=== PATIENT | male | born 1965 | race Caucasian/White ===

== ENCOUNTER 2021-07-14 13:30 | Inpatient (IN) | payer BC ==
[2021-07-14 18:01] VITALS: BMI 27.3
[2021-07-14] MEDS ORDERED: hydrALAZINE 20 MG/ML VIAL SLOW IVP PRN (20:54)
[2021-07-14] MEDS ORDERED: Ondansetron PF 4 MG/2 ML Vial IVP PRN (20:55)
[2021-07-14] MEDS ORDERED: Acetaminophen 325 MG TAB PO PRN (20:55)
[2021-07-14] MEDS ORDERED: Ondansetron ODT 4 MG TAB PO PRN (20:55)
[2021-07-14] MEDS ORDERED: HumaLOG 300 UNITS/3 ML VIAL SC PRN (20:56)
[2021-07-14] MEDS ORDERED: Dextrose 50% Abboject 50 ML SYRINGE SLOW IVP PRN (20:56)
[2021-07-14] MEDS ORDERED: Dextrose 5% in Water 1,000 ML IV PRN (20:56)
[2021-07-14] MEDS ORDERED: Electrolyte Replacement Protocol 1 EACH FS PRN (21:00)
[2021-07-14] MEDS ORDERED: Atorvastatin Calcium 10 MG TAB PO SCH (21:45)
[2021-07-14] MEDS ORDERED: Gabapentin 100 MG CAP PO SCH (21:45)
[2021-07-14] MEDS: HumaLOG 300 UNITS/3 ML VIAL SC PRN (22:22)
[2021-07-15] MEDS: HumaLOG 300 UNITS/3 ML VIAL SC PRN (00:46)
[2021-07-15 04:38] LABS: #Basophils 0.1 thou/uL (0.0-0.2); #Eosinphils 0.3 thou/uL (0.0-0.7); #Monocytes 0.6 thou/uL (0.11-0.59); #Neutrophils 4.6 thou/uL (1.40-6.50); %Basophils 0.8 % (0.0-1.0); %Eosinophils 3.4 % (0.0-10.0); %Lymphocytes 26.9 % (21.0-51.0); %Monocytes 7.9 % (0.0-10.0); %Neutrophils 60.9 % (42.0-75.0); Hemoglobin 14.9 g/dL (14.0-18.0); Mean Corpuscular Hemoglobin 31.3 pg (27.0-31.0); Mean Platelet Volume 7.7 fL (7.4-10.4); Platelet Count 225 thou/uL (130-400); RBC Distribution Width 12.9 % (11.5-14.5); Red Blood Cell (RBC) Count 4.77 mill/uL (4.70-6.10); White Blood Cell (WBC) Count 7.5 thou/uL (4.8-10.8)
[2021-07-15 04:59] LABS: ALT (SGPT) 11 U/L (8-55); AST (SGOT) 7 U/L (5-34); Albumin 3.7 g/dL (3.5-5.0); Alkaline Phosphatase 63 U/L (40-110); Anion Gap 11 mmol/L (10-20); BUN (Urea Nitrogen) 14 mg/dL (8.4-25.7); Bilirubin, Total 0.8 mg/dL (0.2-1.2); Calc. Creatinine Clearance 120 mL/min (70-130); Calcium 8.6 mg/dL (7.8-10.44); Carbon Dioxide 28 mmol/L (22-29); Chloride 100 mmol/L (98-107); Globulin 2.8 g/dL (2.4-3.5); Glucose 185 mg/dL (70-105); Magnesium 2.1 mg/dL (1.6-2.6); Potassium 4.2 mmol/L (3.5-5.1); Protein, Total 6.5 g/dL (6.0-8.3); Sodium 135 mmol/L (136-145)
[2021-07-15] MEDS ORDERED: Albumin 5% 500 ML ONE (08:27)
[2021-07-15] MEDS ORDERED: Lidocaine 1% MPF 2 ML VIAL ONE (08:36)
[2021-07-15] MEDS ORDERED: Midazolam HCl 5 mg/5 ml Vial ONE (08:44)
[2021-07-15] MEDS ORDERED: Dexmedetomidine 200 MCG/2 ML VIAL ONE (08:44)
[2021-07-15] MEDS ORDERED: Fentanyl 250 MCG/5 ML VIAL ONE (08:44)
[2021-07-15] MEDS ORDERED: Heparin 10,000 UNITS/1 ML VIAL 30,000 UNITS in Sodium Chloride 0.9% 1,000 ML FS SCH (08:45)
[2021-07-15] MEDS ORDERED: Lisinopril 2.5 MG TAB PO SCH (09:00)
[2021-07-15] MEDS ORDERED: Atorvastatin Calcium 10 MG TAB PO SCH ×2 (09:00→21:00)
[2021-07-15] MEDS ORDERED: ceFAZolin (BATCH) 2 GM/100 ML BAG ONE (10:00)
[2021-07-15] MEDS ORDERED: Glycopyrrolate 0.2 MG/ML 5 ML SYRINGE ONE (10:13)
[2021-07-15] MEDS ORDERED: Thrombin 5000 UNITS/5 ML VIAL ONE (10:13)
[2021-07-15] MEDS ORDERED: Papaverine 60 MG/2 ML VIAL ONE (10:13)
[2021-07-15] MEDS ORDERED: Sodium Bicarb 50 MEQ/50 ML Abboject 8.4% SYRINGE ONE (10:13)
[2021-07-15] MEDS ORDERED: Mannitol 12.5 GM/50 ML ONE (10:13)
[2021-07-15] MEDS ORDERED: Protamine Sulfate 50 MG/5 ML VIAL ONE (10:13)
[2021-07-15] MEDS ORDERED: Potassium Chloride 60 MEQ/30 ML VIAL ONE (10:13)
[2021-07-15] MEDS ORDERED: PROPOFOL 200 MG/20 ML VIAL ONE (10:13)
[2021-07-15] MEDS ORDERED: Vecuronium 10 MG VIAL ONE (10:13)
[2021-07-15] MEDS ORDERED: Magnesium Sulfate 1 GM/2 ML VIAL ONE (10:13)
[2021-07-15] MEDS ORDERED: Heparin 5,000 UNITS/ML VIAL ONE (10:13)
[2021-07-15] MEDS ORDERED: Aminocaproic Acid 5 GM/20 ML VIAL ONE (10:13)
[2021-07-15] MEDS ORDERED: Lidocaine 1% PF 5 ML VIAL ONE (10:13)
[2021-07-15] MEDS ORDERED: Heparin 30,000 units/30 ml VIAL ONE (10:13)
[2021-07-15] MEDS ORDERED: Cardioplegic Soln 1,000 ML BAG ONE (10:13)
[2021-07-15] MEDS ORDERED: Ondansetron PF 4 MG/2 ML Vial ONE (10:13)
[2021-07-15] MEDS ORDERED: Ketorolac Tromethamine 30 MG/ML VIAL ONE (10:13)
[2021-07-15] MEDS ORDERED: Esmolol 100 MG/10 ML VIAL ONE (10:13)
[2021-07-15] MEDS ORDERED: Nitroglycerin 50 MG/250 ML BOT ONE (10:13)
[2021-07-15] MEDS ORDERED: Rocuronium Bromide 10 MG/ML (10ML VIAL) ONE (10:13)
[2021-07-15] MEDS ORDERED: Norepinephrine 4 MG/4 ML VIAL ONE (10:13)
[2021-07-15] MEDS ORDERED: Lidocaine 2% PF 100 mg/5 ml Syringe ONE (10:13)
[2021-07-15] MEDS ORDERED: Dexamethasone 20 MG/5 ML VIAL ONE (10:13)
[2021-07-15] MEDS ORDERED: Calcium Chloride 1 GM/10 ML Abboject SYRINGE ONE (10:13)
[2021-07-15] MEDS ORDERED: Insulin Regular 300 UNITS/3 ML VIAL ONE (10:47)
[2021-07-15] MEDS ORDERED: PHENYLEPHRINE-NS 100 MCG/ML 10 ML SYRINGE ONE (12:45)
[2021-07-15] MEDS ORDERED: Nitroglycerin 50 MG/250 ML BOT 250 ML IVPB PRN (14:07)
[2021-07-15] MEDS ORDERED: Fentanyl 100 MCG/2 ML VIAL SLOW IVP PRN ×2 (14:07)
[2021-07-15] MEDS ORDERED: Mag-Al 1200 mg/1200 mg/30 ML UDCUP PO PRN (14:07)
[2021-07-15] MEDS ORDERED: DOPamine 400 MG/D5W 250 ML 250 ML IVPB PRN (14:07)
[2021-07-15] MEDS ORDERED: Promethazine HCl 25 MG/ML VIAL IM PRN (14:07)
[2021-07-15] MEDS ORDERED: hydrALAZINE 20 MG/ML VIAL SLOW IVP PRN (14:07)
[2021-07-15] MEDS ORDERED: Ondansetron PF 4 MG/2 ML Vial IVP PRN (14:07)
[2021-07-15] MEDS ORDERED: Norepinephrine 8 MG/0.9% NS 250 ML IVPB PRN (14:07)
[2021-07-15] MEDS ORDERED: Post-Op Insulin Drip Protocol IVPB ONE (14:07)
[2021-07-15] MEDS ORDERED: Hetastarch 6% 500 ML 500 ML IVPB PRN (14:07)
[2021-07-15] MEDS ORDERED: niCARdipine 25 MG in Sodium Chloride 0.9% 250 ML 250 ML IVPB PRN (14:07)
[2021-07-15] MEDS ORDERED: Bisacodyl 5 MG TAB PO PRN (14:07)
[2021-07-15] MEDS ORDERED: Guaifenesin DM 100-10/5 ML UDCUP PO PRN (14:07)
[2021-07-15] MEDS ORDERED: Potassium Chloride 20 MEQ/100 ML PREMIX BAG IVPB PRN (14:07)
[2021-07-15] MEDS ORDERED: Acetaminophen 325 MG TAB PO PRN (14:07)
[2021-07-15] MEDS ORDERED: Bisacodyl 10 MG SUPP PR PRN (14:07)
[2021-07-15] MEDS ORDERED: Morphine 2 MG/ML VIAL SLOW IVP PRN (14:07)
[2021-07-15] MEDS ORDERED: Dextrose 5% in Water 1,000 ML IV PRN (14:30)
[2021-07-15] MEDS ORDERED: HUMULIN R 100 UNITS in Sodium Chloride 0.9% 100 ML IVPB SCH (14:30)
[2021-07-15] MEDS ORDERED: Dextrose 50% Abboject 50 ML SYRINGE SLOW IVP PRN (14:30)
[2021-07-15] MEDS ORDERED: Insulin Regular 300 UNITS/3 ML VIAL SC PRN (14:30)
[2021-07-15 15:10] LABS: Hemoglobin 14.4 g/dL (14.0-18.0); Mean Corpuscular HGB CONC 32.7 g/dL (32.0-36.0); Mean Corpuscular Hemoglobin 30.6 pg (27.0-31.0); Mean Corpuscular Volume 93.6 fL (78.0-98.0); Mean Platelet Volume 7.9 fL (7.4-10.4); Platelet Count 159 thou/uL (130-400); RBC Distribution Width 13.1 % (11.5-14.5); Red Blood Cell (RBC) Count 4.72 mill/uL (4.70-6.10); White Blood Cell (WBC) Count 19.5 thou/uL (4.8-10.8)
[2021-07-15 15:25] LABS: #Eosinphils 0.1 thou/uL (0.0-0.7); #Lymphocytes 1.2 thou/uL (1.20-3.40); #Monocytes 1.1 thou/uL (0.11-0.59); #Neutrophils 17.1 thou/uL (1.40-6.50); %Basophils 0.1 % (0.0-1.0); %Eosinophils 0.4 % (0.0-10.0); %Monocytes 5.5 % (0.0-10.0); Band 19 % (5-11); Lymphocytes 7 % (21-51); MDiff Complete? YES; Monocytes 8 % (0-10); Neutrophil 66 % (42-75); Platelet Morphology Comment Appears Adequate; RBC Morphology Normal
[2021-07-15 15:30] LABS: Anion Gap 12 mmol/L (10-20); BUN (Urea Nitrogen) 12 mg/dL (8.4-25.7); Calc. Creatinine Clearance 127 mL/min (70-130); Calcium 7.6 mg/dL (7.8-10.44); Carbon Dioxide 25 mmol/L (22-29); Chloride 106 mmol/L (98-107); Glucose 125 mg/dL (70-105); Potassium 3.8 mmol/L (3.5-5.1); Sodium 139 mmol/L (136-145)
[2021-07-15] MEDS: Sodium Chloride 0.9% 1,000 ML IV SCH (15:46)
[2021-07-15 16:00] LABS: INR-International Normal Ratio 1.2; Prothrombin Time 15.5 sec (12.0-14.7)
[2021-07-15] MEDS: Ketorolac Tromethamine 30 MG/ML VIAL IVP SCH (18:00)
[2021-07-15] MEDS: ceFAZolin (BATCH) 2 GM in Premix Bag 1 BAG IVPB SCH (18:02)
[2021-07-15 20:17] LABS: Hemoglobin 13.7 g/dL (14.0-18.0)
[2021-07-15 20:23] LABS: Potassium 4.2 mmol/L (3.5-5.1)
[2021-07-15] MEDS ORDERED: Gabapentin 100 MG CAP PO SCH (21:00)
[2021-07-15] MEDS ORDERED: Famotidine/PF 20 mg/2ml Vial SLOW IVP SCH (21:00)
[2021-07-16] MEDS: Ketorolac Tromethamine 30 MG/ML VIAL IVP SCH ×4 (00:11→18:14)
[2021-07-16] MEDS: ceFAZolin (BATCH) 2 GM in Premix Bag 1 BAG IVPB SCH ×2 (01:42→09:36)
[2021-07-16 03:59] LABS: #Lymphocytes 1.6 thou/uL (1.20-3.40); #Monocytes 1.3 thou/uL (0.11-0.59); %Basophils 0.1 % (0.0-1.0); %Eosinophils 0.1 % (0.0-10.0); %Lymphocytes 9.2 % (21.0-51.0); %Monocytes 7.4 % (0.0-10.0); %Neutrophils 83.2 % (42.0-75.0); Hemoglobin 12.7 g/dL (14.0-18.0); Mean Corpuscular HGB CONC 33.4 g/dL (32.0-36.0); Mean Corpuscular Hemoglobin 31.1 pg (27.0-31.0); Mean Corpuscular Volume 93.3 fL (78.0-98.0); Mean Platelet Volume 8.1 fL (7.4-10.4); Platelet Count 186 thou/uL (130-400); RBC Distribution Width 13.2 % (11.5-14.5); Red Blood Cell (RBC) Count 4.09 mill/uL (4.70-6.10); White Blood Cell (WBC) Count 16.9 thou/uL (4.8-10.8)
[2021-07-16 04:21] LABS: Anion Gap 10 mmol/L (10-20); BUN (Urea Nitrogen) 14 mg/dL (8.4-25.7); Calc. Creatinine Clearance 134 mL/min (70-130); Calcium 7.8 mg/dL (7.8-10.44); Carbon Dioxide 24 mmol/L (22-29); Chloride 108 mmol/L (98-107); Glucose 120 mg/dL (70-105); Potassium 4.3 mmol/L (3.5-5.1); Sodium 138 mmol/L (136-145)
[2021-07-16] MEDS ORDERED: Insulin Regular 300 UNITS/3 ML VIAL SC PRN (06:03)
[2021-07-16] MEDS ORDERED: Dextrose 50% Abboject 50 ML SYRINGE SLOW IVP PRN (06:03)
[2021-07-16] MEDS ORDERED: Dextrose 5% in Water 1,000 ML IV PRN ×2 (06:03→08:00)
[2021-07-16] MEDS ORDERED: Mineral Oil ENEMA PR PRN (06:59)
[2021-07-16] MEDS ORDERED: Nitroglycerin 0.4 MG TAB (25 Tab Bottle) SL PRN (06:59)
[2021-07-16] MEDS ORDERED: diphenhydrAMINE 25 MG CAP PO PRN (06:59)
[2021-07-16] MEDS ORDERED: Zolpidem Tartrate 5 MG TAB PO PRN (06:59)
[2021-07-16] MEDS: glyBURIDE 5 MG TAB PO SCH (07:46)
[2021-07-16 07:48] LABS: Glucose 156 mg/dL (70-105)
[2021-07-16] MEDS ORDERED: Dextrose 50% Abboject 50 ML SYRINGE IVP PRN (08:00)
[2021-07-16] MEDS: Famotidine 20 MG TAB PO SCH ×2 (08:00→20:35)
[2021-07-16] MEDS: Alogliptin 25 MG TAB PO SCH (08:00)
[2021-07-16] MEDS: Polyethylene Glycol 3350 17 GM Packet PO SCH (08:01)
[2021-07-16] MEDS: Aspirin 325 mg Enteric Coated Tablet PO SCH (08:13)
[2021-07-16] MEDS: HYDROcodone/Acetaminophen 5/325 mg Tablet PO PRN ×2 (08:22→16:30)
[2021-07-16] MEDS: Insulin Regular 300 UNITS/3 ML VIAL SC PRN ×4 (08:23→20:35)
[2021-07-16] MEDS ORDERED: Aspirin 325 MG TAB PO SCH (09:00)
[2021-07-16 11:40] LABS: Glucose 265 mg/dL (70-105)
[2021-07-16] MEDS: Sodium Chloride 0.9% 1,000 ML IV SCH (14:33)
[2021-07-16] MEDS: Atorvastatin Calcium 20 MG TAB PO SCH (20:35)
[2021-07-17] MEDS: Ketorolac Tromethamine 30 MG/ML VIAL IVP SCH ×4 (00:47→17:38)
[2021-07-17] MEDS: HYDROcodone/Acetaminophen 5/325 mg Tablet PO PRN ×3 (03:18→20:19)
[2021-07-17] MEDS: Insulin Regular 300 UNITS/3 ML VIAL SC PRN ×3 (05:46→20:22)
[2021-07-17 08:23] LABS: Glucose 298 mg/dL (70-105)
[2021-07-17] MEDS: Polyethylene Glycol 3350 17 GM Packet PO SCH (09:59)
[2021-07-17] MEDS: glyBURIDE 5 MG TAB PO SCH (09:59)
[2021-07-17] MEDS: Aspirin 325 mg Enteric Coated Tablet PO SCH (10:00)
[2021-07-17] MEDS: Metoprolol Tartrate 25 MG TAB PO SCH ×2 (10:00→20:17)
[2021-07-17] MEDS: Alogliptin 25 MG TAB PO SCH (10:00)
[2021-07-17] MEDS: Famotidine 20 MG TAB PO SCH ×2 (10:00→20:18)
[2021-07-17] MEDS ORDERED: Insulin Glargine 30 UNITS/0.3 ML VIAL SC SCH (15:30)
[2021-07-17] MEDS: Atorvastatin Calcium 20 MG TAB PO SCH (20:18)
[2021-07-18] MEDS: Ketorolac Tromethamine 30 MG/ML VIAL IVP SCH ×4 (00:03→17:59)
[2021-07-18] MEDS: Insulin Regular 300 UNITS/3 ML VIAL SC PRN ×4 (00:05→20:49)
[2021-07-18] MEDS: HYDROcodone/Acetaminophen 5/325 mg Tablet PO PRN ×4 (01:26→20:45)
[2021-07-18 04:28] LABS: #Eosinphils 0.2 thou/uL (0.0-0.7); #Lymphocytes 1.9 thou/uL (1.20-3.40); #Monocytes 1.3 thou/uL (0.11-0.59); #Neutrophils 8.4 thou/uL (1.40-6.50); %Basophils 0.2 % (0.0-1.0); %Eosinophils 1.6 % (0.0-10.0); %Monocytes 11.1 % (0.0-10.0); %Neutrophils 71.1 % (42.0-75.0); Hemoglobin 11.3 g/dL (14.0-18.0); Mean Corpuscular HGB CONC 33.5 g/dL (32.0-36.0); Mean Corpuscular Hemoglobin 31.5 pg (27.0-31.0); Mean Corpuscular Volume 94.1 fL (78.0-98.0); Mean Platelet Volume 8.4 fL (7.4-10.4); Platelet Count 158 thou/uL (130-400); White Blood Cell (WBC) Count 11.8 thou/uL (4.8-10.8)
[2021-07-18 04:48] LABS: Anion Gap 13 mmol/L (10-20); BUN (Urea Nitrogen) 21 mg/dL (8.4-25.7); Calc. Creatinine Clearance 108 mL/min (70-130); Calcium 8.6 mg/dL (7.8-10.44); Carbon Dioxide 28 mmol/L (22-29); Chloride 100 mmol/L (98-107); Glucose 191 mg/dL (70-105); Potassium 3.9 mmol/L (3.5-5.1); Sodium 137 mmol/L (136-145)
[2021-07-18] MEDS: Polyethylene Glycol 3350 17 GM Packet PO SCH (08:35)
[2021-07-18] MEDS: Insulin Glargine 30 UNITS/0.3 ML VIAL SC SCH (08:36)
[2021-07-18] MEDS: glyBURIDE 5 MG TAB PO SCH (08:36)
[2021-07-18] MEDS: Famotidine 20 MG TAB PO SCH ×2 (08:36→20:46)
[2021-07-18] MEDS: Metoprolol Tartrate 25 MG TAB PO SCH ×2 (08:36→20:45)
[2021-07-18] MEDS: Aspirin 325 mg Enteric Coated Tablet PO SCH (08:36)
[2021-07-18] MEDS: Alogliptin 25 MG TAB PO SCH (11:39)
[2021-07-18] MEDS ORDERED: Insulin Regular 300 UNITS/3 ML VIAL SC SCH (18:30)
[2021-07-18] MEDS: Atorvastatin Calcium 20 MG TAB PO SCH (20:46)
[2021-07-19] MEDS: HYDROcodone/Acetaminophen 5/325 mg Tablet PO PRN ×2 (03:59→15:32)
[2021-07-19] MEDS: Insulin Regular 300 UNITS/3 ML VIAL SC PRN (05:44)
[2021-07-19 07:48] LABS: Glucose 233 mg/dL (70-105)
[2021-07-19] MEDS: Alogliptin 25 MG TAB PO SCH (08:18)
[2021-07-19] MEDS: Aspirin 325 mg Enteric Coated Tablet PO SCH (08:18)
[2021-07-19] MEDS: Metoprolol Tartrate 25 MG TAB PO SCH (08:18)
[2021-07-19] MEDS: Polyethylene Glycol 3350 17 GM Packet PO SCH (08:18)
[2021-07-19] MEDS: Famotidine 20 MG TAB PO SCH (08:18)
[2021-07-19] MEDS: glyBURIDE 5 MG TAB PO SCH (08:18)
[2021-07-19] MEDS: Insulin Glargine 30 UNITS/0.3 ML VIAL SC SCH (08:18)
[2021-07-19] MEDS ORDERED: Polyethylene Glycol 3350 17 GM Packet PO SCH (10:45)
[2021-07-19] MEDS ORDERED: metFORMIN 500 MG TAB PO SCH ×2 (11:00→17:00)
[2021-07-19] MEDS ORDERED: glyBURIDE 5 MG TAB PO SCH ×2 (11:00→17:00)
[2021-07-19 11:57] LABS: Glucose 288 mg/dL (70-105)
[2021-07-19 11:59] VITALS: TEMP 98.3
[2021-07-19 17:21] LABS: Glucose 251 mg/dL (70-105)
[2021-07-19 17:53] VITALS: BP 122/72
[2021-07-20] MEDS ORDERED: Insulin Glargine 30 UNITS/0.3 ML VIAL SC SCH (09:00)
[2021-07-20] MEDS ORDERED: Polyethylene Glycol 3350 17 GM Packet PO SCH (09:00)
[2021-07-20 13:45] LABS: Actual Bicarbonate (HCO3a) 23.9 mEq/L (22-28); Analyzer IN Cardio OR; Base Excess (BEa) -0.7 mEq/L (-2.0 to +3.0); Calcium, Ionized (arterial) 1.09 mmol/L (1.12-1.30); Carboxyhemoglobin (COHb) 0.3 gm% (0.0-3.0); Hemoglobin (Hb) 11.4 g/dL (14.0-18.0); O2 Tension (PaO2), arterial 262.1 mmHg (80.0-100.0); pH, Arterial 7.41 (7.35-7.45)
[2021-07-20 13:45] LABS: Actual Bicarbonate (HCO3a) 24.7 mEq/L (22-28); Analyzer IN Cardio OR; CO2 Tension 49.9 mmHg (35.0-45.0); Calcium, Ionized (arterial) 1.06 mmol/L (1.12-1.30); Carboxyhemoglobin (COHb) 0.5 gm% (0.0-3.0); Hemoglobin (Hb) 13.6 g/dL (14.0-18.0); Potassium - ABG Lab 3.55 mmol/L (3.70-5.30); pH, Arterial 7.31 (7.35-7.45)
[2021-07-20 13:46] LABS: Actual Bicarbonate (HCO3v) 25 mEq/L (22-28); Analyzer IN Cardio OR; Base Excess -1.3 mEq/L (-2.0 to +3.0); Calcium, Ionized (venous) 1.03 mmol/L (1.16-1.32); Chloride (VBG) 102 mmol/L (98-106); Hemoglobin (Hb) 11.9 g/dL (13.1-17.2); Potassium (VBG) 3.98 mmol/L (3.70-5.30); Sodium 134.1 mmol/L (133-146); pH (venous) 7.34 (7.32-7.43)
[2021-07-20 13:46] LABS: Actual Bicarbonate (HCO3a) 23.5 mEq/L (22-28); Analyzer IN Cardio OR; Base Excess (BEa) -2.4 mEq/L (-2.0 to +3.0); CO2 Tension 44.9 mmHg (35.0-45.0); Calcium, Ionized (arterial) 1.04 mmol/L (1.12-1.30); Carboxyhemoglobin (COHb) 0.7 gm% (0.0-3.0); Hemoglobin (Hb) 12.1 g/dL (14.0-18.0); O2 Tension (PaO2), arterial 307.9 mmHg (80.0-100.0); Potassium - ABG Lab 3.76 mmol/L (3.70-5.30); pH, Arterial 7.34 (7.35-7.45)
[2021-07-20 13:46] LABS: Analyzer IN Cardio OR; Base Excess (BEa) -0.4 mEq/L (-2.0 to +3.0); CO2 Tension 38.2 mmHg (35.0-45.0); Calcium, Ionized (arterial) 1.01 mmol/L (1.12-1.30); Carboxyhemoglobin (COHb) 0.5 gm% (0.0-3.0); Hemoglobin (Hb) 11.4 g/dL (14.0-18.0); O2 Tension (PaO2), arterial 293.4 mmHg (80.0-100.0); Potassium - ABG Lab 3.77 mmol/L (3.70-5.30); pH, Arterial 7.42 (7.35-7.45)
[2021-07-20 13:47] LABS: Actual Bicarbonate (HCO3a) 26.2 mEq/L (22-28); Analyzer IN Cardio OR; Base Excess (BEa) 1.7 mEq/L (-2.0 to +3.0); CO2 Tension 40.6 mmHg (35.0-45.0); Calcium, Ionized (arterial) 1.07 mmol/L (1.12-1.30); Carboxyhemoglobin (COHb) 1.1 gm% (0.0-3.0); Hemoglobin (Hb) 14.7 g/dL (14.0-18.0); O2 Tension (PaO2), arterial 347.6 mmHg (80.0-100.0); Puncture Site Arterial Line; pH, Arterial 7.43 (7.35-7.45)
[2021-07-20 13:47] LABS: Actual Bicarbonate (HCO3a) 22.8 mEq/L (22-28); Analyzer IN Cardio OR; Base Excess (BEa) -2.7 mEq/L (-2.0 to +3.0); CO2 Tension 41.8 mmHg (35.0-45.0); Calcium, Ionized (arterial) 1.08 mmol/L (1.12-1.30); Carboxyhemoglobin (COHb) 0.6 gm% (0.0-3.0); Hemoglobin (Hb) 14.2 g/dL (14.0-18.0); O2 Tension (PaO2), arterial 347.3 mmHg (80.0-100.0); Potassium - ABG Lab 3.46 mmol/L (3.70-5.30); pH, Arterial 7.35 (7.35-7.45)
[2021-07-20 13:48] LABS: Puncture Site Arterial Line
[2021-07-20 13:48] LABS: Puncture Site Arterial Line
[2021-07-20 13:49] LABS: Puncture Site Arterial Line
[2021-07-20 13:49] LABS: Puncture Site Arterial Line
[2021-07-20 13:50] LABS: Puncture Site Arterial Line
== END 2021-07-19 17:57 | disposition home or self-care (01) | DRG 236 ==
LOC: 2NO 17:42 → CCU 07-15 08:19 → 2NO 07-16 13:44
PROVIDERS: ADMIT Internal Medicine; ATTEND Internal Medicine
PROC: 02100Z9 Bypass Coronary Artery, One Artery from Left Internal Mammary, Open Approach (ICD-10-PCS; principal; 2021-07-15)
PROC: 021109W Bypass Coronary Artery, Two Arteries from Aorta with Autologous Venous Tissue, Open Approach (ICD-10-PCS; 2021-07-15)
PROC: 06BQ4ZZ Excision of Left Saphenous Vein, Percutaneous Endoscopic Approach (ICD-10-PCS; 2021-07-15)
PROC: 5A1221Z Performance of Cardiac Output, Continuous (ICD-10-PCS; 2021-07-15)
PROC: 02L70CK Occlusion of Left Atrial Appendage with Extraluminal Device, Open Approach (ICD-10-PCS; 2021-07-15)
DX: I25.110 Atherosclerotic heart disease of native coronary artery with unstable angina pectoris (principal); I10 Essential (primary) hypertension; E11.9 Type 2 diabetes mellitus without complications; J43.2 Centrilobular emphysema; E78.5 Hyperlipidemia, unspecified; Z91.19 Patient's noncompliance with other medical treatment and regimen; Z86.15 Personal history of latent tuberculosis infection; Z79.899 Other long term (current) drug therapy; Z79.84 Long term (current) use of oral hypoglycemic drugs; Z79.82 Long term (current) use of aspirin
CPT/HCPCS: 36415; 36416; 71045; 80048; 80053; 82805; 82947; 83735; 85025; 85610; 85730; 86850; 86900; 86901; 93005; 93010; 93798; C1751; C1776; J0690; J1100; J1644; J1815; J1885; J2001; J2150; J2250; J2405; J2440; J2704; J2720; J3010; J3370; J3475; J3480; J7050; P9045; S0017; S0028

== ENCOUNTER 2024-02-06 14:32 | Outpatient (CLI) | payer MEDICARE | END 2024-02-06 14:33 | disposition home or self-care (01) | LOC: BICCT 14:32 | PROVIDERS: ATTEND Nurse Practitioner Family | DX: Z12.2 Encounter for screening for malignant neoplasm of respiratory organs (principal); Z87.891 Personal history of nicotine dependence | CPT/HCPCS: 71271 ==